=== PATIENT | male | born 1985 | race Caucasian/White ===

== ENCOUNTER 2018-09-18 16:41 | Emergency (ER) | payer SELFPAY ==
[~2018-09-18] VITALS: Ht 167.6 cm; Wt 105.7 kg
[2018-09-18 16:56] VITALS: Ht 167.6 cm; Wt 105.7 kg
[2018-09-18 19:17] VITALS: BP 117/79
== END 2018-09-18 19:17 | disposition home or self-care (01) ==
LOC: ED 16:41
DX: R07.89 Other chest pain (principal); Z98.890 Other specified postprocedural states